=== PATIENT | male | born 1985 | race Caucasian/White ===

== ENCOUNTER 2024-06-22 04:27 | Emergency (ER) | payer MEDICAID ==
[~2024-06-22] VITALS: Ht 162.6 cm; Wt 63.6 kg
[2024-06-22 04:36] VITALS: TEMP 97.6
[2024-06-22 06:03] LABS: APPEARANCE,URINE CLEAR (CLEAR); BILIRUBIN,URINE NEGATIVE (NEGATIVE); COLOR,URINE COLORLESS (YELLOW); GLUCOSE, URINE (UA) >=1000 mg/dL (NEGATIVE); KETONES,URINE NEGATIVE (NEGATIVE); LEUKOCYTE ESTERASE ,URINE NEGATIVE (NEGATIVE); NITRATE,URINE NEGATIVE (NEGATIVE); OCCULT BLOOD,URINE NEGATIVE (NEGATIVE); PROTEIN,URINE NEGATIVE (NEGATIVE); SPECIFIC GRAVITIY, URINE 1.007 (1.003-1.030); UROBILINOGEN,URINE <=1.0 mg/dL (<=1.0)
[2024-06-22 06:09] LABS: AMPHET/METH SCREEN,URINE POSITIVE (NEGATIVE); BARBITURATE SCREEN, URINE POSITIVE (NEGATIVE); BENZODIAZEPINES SCREEN,URINE NEGATIVE (NEGATIVE); CANNABINOID SCREEN,URINE NEGATIVE (NEGATIVE); COCAINE SCREEN,URINE NEGATIVE (NEGATIVE); METHADONE SCREEN, URINE NEGATIVE (NEGATIVE); OPIATE SCREEN,URINE NEGATIVE (NEGATIVE); PHENCYCLIDINE SCREEN,URINE NEGATIVE (NEGATIVE)
[2024-06-22 06:15] LABS: ALCOHOL, URINE DRUG SCREEN POSITIVE (NEGATIVE)
[2024-06-22 06:29] LABS: BACTERIA,URINE None Seen /HPF (None Seen); RBC,URINE None Seen /HPF (0-2); SQUAMOUS EPITHELIAL CELL,UR Few /LPF (None Seen); WBC,URINE None Seen /HPF (0-5)
[2024-06-22 06:46] LABS: EOSINOPHILS % (AUTO) 0.8 % (1.0-6.0); HEMATOCRIT 35.7 % (41-53); HEMOGLOBIN 11.9 g/dL (13.5-17.5); LYMPHOCYTES # (AUTO) 0.9 K/uL (1.0-4.8); LYMPHOCYTES % (AUTO) 27.1 % (22.0-44.0); MEAN CORPUSCULAR HEMOGLOBIN 32.4 pg (26.0-34.0); MEAN CORPUSCULAR HGB CONC 33.4 G/dL (31.0-37.0); MEAN CORPUSCULAR VOLUME 97 fL (80-100); MONOCYTES # (AUTO) 0.2 K/uL (0.1-1.0); MONOCYTES % (AUTO) 4.8 % (2.0-9.0); NEUTROPHILS # (AUTO) 2.1 K/uL (1.8-7.7); NEUTROPHILS % (AUTO) 66.3 % (40.0-70.0); PLATELET COUNT (AUTO) 128 K/uL (150-450); RED BLOOD CELL COUNT(AUTO) 3.68 MIL/uL (4.50-5.90); RED CELL DISTRIBUTION WIDTH 15.8 % (11.5-14.5); WHITE BLOOD COUNT (AUTO) 3.2 K/uL (4.5-11.0)
[2024-06-22 06:56] LABS: ANION GAP 11 mmol/L (8-16); CALCIUM, TOTAL 9.2 mg/dL (8.8-10.5); CARBON DIOXIDE 27 mmol/L (22-29); CHLORIDE 94 mmol/L (98-107); CREATININE 0.63 mg/dL (0.60-1.30); GLOMERULAR FILTR. RATE CALC > 60 mL/min (>60); GLUCOSE,RANDOM 344 mg/dL (70-110); POTASSIUM 3.6 mmol/L (3.5-5.1); SODIUM SERUM 132 mmol/L (136-145); UREA NITROGEN, BLOOD 4 mg/dL (7-18)
[2024-06-22 07:03] LABS: ALANINE AMINOTRANSFERASE 108 U/L (12-78); ALBUMIN 3.9 g/dL (3.4-5.0); ALKALINE PHOSPHATASE 492 U/L (46-116); ASPARTATE AMINOTRANSFERASE 198 U/L (15-37); BILIRUBIN,TOTAL 0.4 mg/dL (0.1-1.0); LIPASE < 10 U/L (16-77); TOTAL PROTEIN, SERUM 8.1 g/dL (6.4-8.2)
[2024-06-22] MEDS: SODIUM CHLORIDE 0.9% 1,000 ML IV ONE (07:13)
[2024-06-22 07:34] VITALS: BP 118/75; PULSE 86; RESP 16; O2SAT 100
== END 2024-06-22 08:40 | disposition left against medical advice (07) ==
LOC: EMS 04:27
DX: F10.20 Alcohol dependence, uncomplicated (principal); R10.13 Epigastric pain; E11.9 Type 2 diabetes mellitus without complications; D64.9 Anemia, unspecified; Z79.4 Long term (current) use of insulin; Z87.19 Personal history of other diseases of the digestive system; Z90.49 Acquired absence of other specified parts of digestive tract
CPT/HCPCS: 99283; 96360; 80048; 80076; 81001; 82009; 82962; 83690; 85025; 36415; 80307; G0480; J7030